=== PATIENT | male | born 2005 | race Caucasian/White ===

== ENCOUNTER 2024-07-19 05:46 | Inpatient (IN) | payer BC, SELFPAY ==
[2024-07-18 22:52] VITALS: BP 120/81
[2024-07-18 23:39] LABS: COVID-19 Antigen Negative (Negative)
--- NOTE | 2024-07-18 23:46 | ED.GENMED ---
History of Present Illness
<SAUL Saeed - Last Filed: 07/19/24 06:09>
General
Chief Complaint: Cold/Flu/URI Symptoms
Source: patient
Time Seen by Provider: 07/18/24 23:46
Nursing documentation reviewed up to this point in time: agreed with
History of Present Illness
History of Present Illness:
A pleasant 18-year-old male with no past medical history presents to the emergency room for URI symptoms x 4 days. Shortly after attending a [employer] on Tuesday patient began to develop URI symptoms including cough, subjective fever, sore
throat, fatigue, nasal congestion, right ear fullness, postnasal drip. Today he admits to leaving work early due to an increase in fatigue and sudden onset of diaphoresis. He states he immediately went home and slept for '4 to 5 hours '. This
evening he states he had a coughing attack and coughed up chunks of blood '. Patient has been rehydrating with water and Gatorade and admits to taking 1 dose of DayQuil 30 minutes prior to admission. 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
sick contact; however, admits to 1 new sexual partner on Tuesday night at the [employer]. He denies chest pain, shortness of breath, abdominal pain, headache, vision changes, nausea, vomiting, diarrhea.
He has no past medical history of reactive airway disease, asthma.
Phy Exam
<SAUL Saeed - Last Filed: 07/19/24 06:09>
General Physical Exam
General Presentation: well appearing and no apparent distress
General age: appears stated age
General Skin: warm
General Habitus: normal
General Mental: alert
General Hydration: appears well hydrated
Eye Exam
Eye Exam: conjunctiva normal
Cardiovascular Exam
Cardiovascular Exam: regular rate/rhythm, no edema, no gallop, no murmur and normal peripheral pulses
Pulmonary Exam
Pulmonary Exam: lungs clear, no respiratory distress, no rales, no crackles, no rhonchi, no wheezing and other (hemoptysis )
Gastrointestinal Exam
Gastrointestinal Exam: non tender, soft and non distended
Neurological Exam
Neurological Exam: alert and oriented x3
Musculoskeletal Exam
Musculoskeletal Exam: full ROM
Skin Exam
Skin Exam: normal color and warm/dry
Psychiatric Exam
Psychiatric Exam: normal mood/affect
Course
<Anthony Chun, [facility] - Last Filed: 07/19/24 06:09>
Orders/Labs/Results
Orders:
Orders
07/18/24 23:15
COVID-19 Antigen Urgent
Source: Nasal Swab
Influenza A+B Rapid Molecular Urgent
GABRIEL Source: Nasal Swab
Specimen Description:
Date Specimen was Collected: 07/18/24
Time Specimen was Collected: 23:08
Rapid Strep Group A Urgent
GABRIEL Source: Throat/Pharynx
Specimen Description:
Date Specimen was Collected: 07/18/24
Time Specimen was Collected: 23:08
07/19/24 00:19
CR Chest - 2 Views Urgent
Comment:
Reason For Exam: cough, hemoptysis
07/19/24 00:20
Dexamethasone Sod Phosphate [Decadron] 10 mg IV NOW STA
07/19/24 00:23
Complete Blood Count/With Diff Urgent
Monotest Urgent
07/19/24 01:21
Tranexamic Acid 500 mg INH NOW STA
07/19/24 02:40
CT Chest With Iv Contrast Urgent
Comment:
Reason For Exam: acute hemoptysis
CT Neck With Iv Contrast Urgent
Comment:
Reason For Exam: pharyngitis, acute hemoptysis
07/19/24 02:50
Comprehensive Metabolic Panel Urgent
07/19/24 04:56
0.9% Sodium Chloride 1000 ml [Nss] 1,000 ml IV 250 mls/hr
Azithromycin 500 mg/250 ml [Zithromax Infusion] 500 mg in 250 ml IV NOW
CefTRIAXone [Rocephin] 1,000 mg IV NOW STA
07/19/24 05:16
Admit/Transfer Patient As Directed
Co-Sign Provider:
Level of Care: Inpatient admission
Assign to:: Telemetry
Physician / Group: Pritesh
Diagnosis: Infectious Mononucleosis, Hemoptysis
Reason for Telemetry: Arrhythmia
Date to Stop Telemetry: 07/22/24
Time to Stop Telemetry: 11:00
Reason for Hospitalization: Infectious Mononucleosis, Hemoptysis
Expected length of stay greater than two midnights?: Yes
ELOS- Estimated Length of Stay in days: 2
I certify the patient meets the requirements for IP care: Yes
PRN Pain Medication Management As Directed
May give lesser potent ordered pain med per pt: Yes
preference::
Protocol:: Medication orders for pain may be administered in a
manner that supports deferring to patient preference
when the pt is:
- Requesting an ordered lesser potent pain medication.
Least to most potent pain medications are defined
as: acetaminophen < NSAID < tramadol < opioids
(morphine, oxycodone, hydromorphone).
- Requesting a lesser dose of the same medication IF
ORDERED.
- Requesting a less intrusive route of administration
if both routes are prescribed by the provider (PO <
IV).
07/19/24 05:17
Code Status As Directed
Resuscitation Status: Full Code
07/22/24 11:00
DC Protocol for Telemetry ONCE
Abnormal Lab Results
07/19/24
00:23
WBC 11.2 H 10^3/uL
(4.8-10.8)
RBC 4.56 L 10^6/uL
(4.70-6.10)
Abs Immat Gran (auto) 0.1 H 10^3/uL
(0-0.05)
Absolute Neuts (auto) 8.0 H 10^3/uL
(1.4-6.5)
Absolute Monos (auto) 0.8 H 10^3/uL
(0.1-0.6)
Immature Gran % 0.6 H %
(0-0.5)
Lymphocytes % 18.0 L %
(20.5-51.1)
Monoscreen Positive A
(Negative)
07/19/24 00:23
07/19/24 02:50
Vital Signs
Initial and Last Documented VS:
Initial Vital Signs
Temp Pulse Resp BP Pulse Ox
99.2 F 80 16 120/81 98
07/18/24 22:52 07/18/24 22:52 07/18/24 22:52 07/18/24 22:52 07/18/24 22:52
Last Documented Vital Signs
Temp Pulse Resp BP Pulse Ox
99.2 F 52 16 104/70 100
07/18/24 22:52 07/19/24 02:47 07/18/24 22:52 07/19/24 02:47 07/19/24 02:47
<Naomie Ta, DO - Last Filed: 07/19/24 04:59>
Orders/Labs/Results
Orders:
Orders
07/18/24 23:15
COVID-19 Antigen Urgent
Source: Nasal Swab
Influenza A+B Rapid Molecular Urgent
GABRIEL Source: Nasal Swab
Specimen Description:
Date Specimen was Collected: 07/18/24
Time Specimen was Collected: 23:08
Rapid Strep Group A Urgent
GABRIEL Source: Throat/Pharynx
Specimen Description:
Date Specimen was Collected: 07/18/24
Time Specimen was Collected: 23:08
07/19/24 00:19
CR Chest - 2 Views Urgent
Comment:
Reason For Exam: cough, hemoptysis
07/19/24 00:20
Dexamethasone Sod Phosphate [Decadron] 10 mg IV NOW STA
07/19/24 00:23
Complete Blood Count/With Diff Urgent
Monotest Urgent
07/19/24 01:21
Tranexamic Acid 500 mg INH NOW STA
07/19/24 02:40
CT Chest With Iv Contrast Urgent
Comment:
Reason For Exam: acute hemoptysis
CT Neck With Iv Contrast Urgent
Comment:
Reason For Exam: pharyngitis, acute hemoptysis
07/19/24 02:50
Comprehensive Metabolic Panel Urgent
07/19/24 04:56
0.9% Sodium Chloride 1000 ml [Nss] 1,000 ml IV 250 mls/hr
Azithromycin 500 mg/250 ml [Zithromax Infusion] 500 mg in 250 ml IV NOW
CefTRIAXone [Rocephin] 1,000 mg IV NOW STA
07/19/24 05:16
Admit/Transfer Patient As Directed
Co-Sign Provider:
Level of Care: Inpatient admission
Assign to:: Telemetry
Physician / Group: Pritesh
Diagnosis: Infectious Mononucleosis, Hemoptysis
Reason for Telemetry: Arrhythmia
Date to Stop Telemetry: 07/22/24
Time to Stop Telemetry: 11:00
Reason for Hospitalization: Infectious Mononucleosis, Hemoptysis
Expected length of stay greater than two midnights?: Yes
ELOS- Estimated Length of Stay in days: 2
I certify the patient meets the requirements for IP care: Yes
PRN Pain Medication Management As Directed
May give lesser potent ordered pain med per pt: Yes
preference::
Protocol:: Medication orders for pain may be administered in a
manner that supports deferring to patient preference
when the pt is:
- Requesting an ordered lesser potent pain medication.
Least to most potent pain medications are defined
as: acetaminophen < NSAID < tramadol < opioids
(morphine, oxycodone, hydromorphone).
- Requesting a lesser dose of the same medication IF
ORDERED.
- Requesting a less intrusive route of administration
if both routes are prescribed by the provider (PO <
IV).
07/19/24 05:17
Code Status As Directed
Resuscitation Status: Full Code
07/22/24 11:00
DC Protocol for Telemetry ONCE
Abnormal Lab Results
07/19/24
00:23
WBC 11.2 H 10^3/uL
(4.8-10.8)
RBC 4.56 L 10^6/uL
(4.70-6.10)
Abs Immat Gran (auto) 0.1 H 10^3/uL
(0-0.05)
Absolute Neuts (auto) 8.0 H 10^3/uL
(1.4-6.5)
Absolute Monos (auto) 0.8 H 10^3/uL
(0.1-0.6)
Immature Gran % 0.6 H %
(0-0.5)
Lymphocytes % 18.0 L %
(20.5-51.1)
Monoscreen Positive A
(Negative)
07/19/24 00:23
07/19/24 02:50
Vital Signs
Initial and Last Documented VS:
Initial Vital Signs
Temp Pulse Resp BP Pulse Ox
99.2 F 80 16 120/81 98
07/18/24 22:52 07/18/24 22:52 07/18/24 22:52 07/18/24 22:52 07/18/24 22:52
Last Documented Vital Signs
Temp Pulse Resp BP Pulse Ox
99.2 F 52 16 104/70 100
07/18/24 22:52 07/19/24 02:47 07/18/24 22:52 07/19/24 02:47 07/19/24 02:47
<SAUL Saeed - Last Filed: 07/19/24 06:09>
MDM/Problems Addressed
Differential Diagnosis Includes:
Viral pharyngitis, strep pharyngitis, pneumonia, mononucleosis.
MDM/Problems Addressed:
Viral pharyngitis was suspected however is unlikely due to negative COVID-19 rapid test, negative influenza A and B rapid test,. Bacterial pharyngitis is unlikely due to negative rapid strep test. Most likely etiology of symptoms is due to
mononucleosis which was confirmed with Monospot.
However.
however, on CT small hazy infiltrates in left posterior lung alvarez were visualized and possible pneumonia was suspected.
CT scan also demonstrated epiglottic edema consistent. Bacterial epiglottitis cannot be fully ruled out.
Will initiate antibiotic therapy and admit for 24-hour monitoring for resolution of hemoptysis.
<Naomie Ta DO - Last Filed: 07/19/24 04:59>
*Radiology
Radiology exam reviewed: preliminary read by ED provider (Chest x-ray is unremarkable) and radiology read reviewed
*Pulse Oximetry
Patient hypoxic: no
*Critical Care Note
Total Time (30-74mins, 75-104mins- exclusive of procedures): Not Applicable
ED Attending Note
<SAUL Saeed - Last Filed: 07/19/24 06:09>
-
Portions of this chart may have been created with voice recognition software.� Occasional wrong word or��sound alike� substitutions may have occurred due to the inherent limitations of voice recognition software.
<Naomie Ta DO - Last Filed: 07/19/24 04:59>
ED Attending Note
Patient seen and examined by attending physician: Yes
I performed the substantive portion of visit, reviewed & personally made and approve the management plan that is documented in note by myself or MADISON.: Yes
ED Attending Note:
This is a 18-year-old male with no significant past medical history who complains of 4-day history of cough, nasal congestion, significant sore throat, fatigue, myalgias, subjective fever.
Cough has been sporadic throughout the day but he denies shortness of breath, no abdominal pain. Significant sore throat but able to swallow liquids well and has been attempting to keep up with water, Gatorade etc. Tonight he began coughing and
coughed up a fair amount of dark red blood with blood clots.
He denies choking or gagging, denies vomiting. He denies chest pain. He denies dizziness nor lightheadedness.
He notes 1 previous episode of sore throat with hemoptysis that occurred several years ago, resolved without specific intervention.
No known close contacts with similar symptoms but patient did attend a democrat last week and was around multiple democrat got worse.
He vapes nicotine.
No prior history of asthma nor chronic lung disease.
He takes no medicines on a daily basis. Denies significant NSAID nor aspirin use.
He did take 2 DayQuil tonight approximately 1 hour prior to arrival.
GENERAL: 18-year-old male appears his stated age, bright and alert, pleasant, appears in no acute distress. He exhibits moderate 'hot potato' voice and mild nasal stuffiness but handling secretions well, no stridor, rare brief nonproductive cough
is noted during initial exam. Respirations are otherwise easy and nonlabored.
Initial oral temperature in triage 99.2 �F. Upon recheck 98.6 �F.
EYE: pupils equal and reactive. anicteric
NECK: Supple, nontender, no meningismus, mild shotty adenopathy bilaterally.
ENT: posterior pharynx shows moderate bilateral tonsillar injection with moderate bilateral tonsillar hypertrophy without exudate. There is no pharyngeal nor posterior pharyngeal blood. Oral mucosa is moist. TM clear b/l, nares have moderately
boggy turbinates with scant clear rhinorrhea.
CARDIAC: Regular rate and rhythm. no murmur.
LUNGS: Clear breath sounds bilaterally, no acute respiratory distress, no wheezes/rales/rhonchi
ABDOMEN: Soft, nondistended, without focal tenderness, no r/g, no cvat. normoactive BS.
NEUROLOGICAL: Alert and oriented x3, no focal neuro deficits. Gait is nagel and steady.
SKIN: Warm and dry, normal color, skin intact. No rash.
MUSCULOSKELETAL: No C/C/E. peripheral pulses are full and equal b/l. No palpable tenderness.
PSYCH: Normal and appropriate interaction.
Acute pharyngitis, URI, with acute hemoptysis. Concern for mononucleosis, acute streptococcal pharyngitis, concern for sinusitis, posterior epistaxis, thrombocytopenia.
Other consideration is lower respiratory tract infection/pneumonia, bronchial irritation as cause for hemoptysis.
He denies vomiting nor gagging thus Wendy-Nguyễn tear is unlikely.
Thus far rapid strep is negative. COVID antigen and flu testing are negative.
Will check CBC, Monospot and check chest x-ray.
Will check sputum culture if cough is productive of sputum.
Thus far no recurrent episodes of hemoptysis since arrival to the ED. He remains hemodynamically stable.
For pharyngitis will give an IV dose of Decadron.
Due to hemoptysis we will hold off on NSAIDs.
07/19/2024 01:15 am
CBC is unremarkable. Monospot is positive consistent with acute mononucleosis.
Chest x-ray is unremarkable, clear lung alvaerz.
Patient however has had recurrent episode of hemoptysis coughing up fair amount of dark red/maroon blood. There is no bright red blood. He denies vomiting nor gagging.
He continues to have no chest pain nor sense of gurgling in his chest and lungs remain clear to auscultation.
I suspect hemoptysis is posterior pharyngeal in nature. He continues to have no difficulty swallowing and is actually asking for water to drink.
Will trial nebulized TXA. If hemoptysis persist will plan for CT.
07/19/2024 0449 AM
Hemoptysis continued for a bit after TXA but has since subsided.
Patient continues to request something to eat and drink. Mildly muffled voice but no stridor and handling secretions well.
CT of the neck and chest shows acute tonsillitis without fluid collection, epiglottis is mildly thickened concerning for mild epiglottitis/supraglottitis. Airway remains patent. Maxillary sinus disease.
CT of the chest shows very subtle patchy opacities in the left lower lung concerning for pneumonia. Central airways are patent.
Due to recurrent significant hemoptysis, concern for epiglottitis as well as potential pneumonia will initiate IV antibiotics for coverage of potential bacterial pneumonia, and admit to hospitalist service for continued observation.
Will continue n.p.o. status and continue IV fluids.
Discharge Plan
Departure
Patient Disposition: Admit
Date of Disposition: 07/19/24
Time of Disposition: 04:51
Admit to: Telemetry
Admit to doctor: Pritesh
Presentation/result/management discussed w/ accepting MD/DO: Hospitalist
Covid-19: Negative COVID-19
Discharge Problem:
Acute tonsillitis due to infectious mononucleosis, Acute epiglottitis without airway obstruction, acute hemoptysis, Community acquired pneumonia
Interventions
Interventions:
*Risk Screen - Suicide Last Done: 07/18/24 22:52
*General Assessment Last Done: 07/18/24 22:52
*Neglect/Abuse Screening Last Done: 07/18/24 22:52
ED- Fall Risk Assessment Last Done: 07/18/24 22:52
*Nursing Disposition Last Done: 07/19/24 06:08
ED- Pulmonary Assessment Last Done: 07/19/24 00:30
[2024-07-19] VITALS (8 sets, daily range): BP systolic 104–126; BP diastolic 56–85; PULSE 55–104; BMI 20.7; BMI 21.2
[2024-07-19] MEDS: DECADRON 10 MG IV (00:29)
[2024-07-19 00:53] LABS: Monotest Positive (Negative)
[2024-07-19 01:01] LABS: % Basophils 0.4 % (0-2); % Eosinophils 2.3 % (0-6); % Immature Granulocytes 0.6 % (0-0.5); % Monocytes 7.4 % (1.7-9.3); % Neutrophils 71.3 % (42.2-75.2); Absolute Basophils 0.1 10^3/uL (0-0.2); Absolute Eosinophils 0.3 10^3/uL (0-0.7); Absolute Immature Granulocytes 0.1 10^3/uL (0-0.05); Absolute Monocytes 0.8 10^3/uL (0.1-0.6); Hematocrit 39.9 % (39.0-52.0); Mean Corp Hgb Conc. 35.1 g/dL (33.0-37.0); Mean Corpuscular Hgb 30.7 pg (27.0-31.0); Mean Corpuscular Volume 87.5 fL (80.0-94.0); Mean Platelet Volume 8.9 fL (7.4-10.4); Nucleated Red Blood Cells % 0 % (-); Platelet Count 205 10^3/uL (130-400); Red Blood Cell Count 4.56 10^6/uL (4.70-6.10); Red Cell Dist. Width 13.9 % (11.5-14.5); White Blood Cell Count 11.2 10^3/uL (4.8-10.8)
[2024-07-19] MEDS: TRANEXAMIC ACID 500 MG INH (01:27)
[2024-07-19 03:28] LABS: ALT (SGPT) < 10 U/L (0-50); AST (SGOT) 19 U/L (17-59); Albumin 4.2 g/dl (3.5-5.0); Alkaline Phosphatase 111 U/L (38-126); Blood Urea Nitrogen 12 mg/dl (9-20); Calcium 9.2 mg/dl (8.4-10.2); Carbon Dioxide 25 mmol/L (22-30); Chloride 101 mmol/L (98-107); Glucose 78 mg/dl (70-99); Sodium 141 mmol/L (135-145); Total Bilirubin 0.4 mg/dl (0.2-1.3); Total Protein 7.2 g/dl (6.3-8.2); eGFR > 60.00
[2024-07-19] MEDS: ROCEPHIN 1000 MG IV (05:07)
[2024-07-19] MEDS: NSS 1000 IV ×4 (05:07→23:56)
[2024-07-19] MEDS: ZITHROMAX INFUSION 250 IV (05:08)
--- NOTE | 2024-07-19 05:22 | HPS.HSE ---
Family Physician
-
Family Physician: Fernie Aranda
Chief Complaint
-
Sore Throat / Coughing up blood
History of Present Illness
Patient is a 18y M with no significant PMH who presents to ED complaining of sore throat and coughing up blood. Patient states that he developed a sore throat and cough on Tuesday. He is not aware of any specific sick contacts, but spent the
weekend at [facility] and was around a lot of people. He had dry, hacking cough, malaise and fatigue. This evening he began to cough up small amounts of blood. He presented to the ED for further evaluation.
In the ED, patient continued to cough and produce lolly blood. Approximately 4-6 ounces of blood produced here in the ED.
Patient was treated with inhaled TXA and is currently resting with no continued / persistent hemoptysis.
He denies any prior history of similar symptoms.
Medical History
Past Medical History
Past Medical History: Reports None
Past Surgical History: Reports None
Social History
Tobacco: Vaping
Alcohol: Occasional
Drug: None
Family History
Family History: Not pertinent
Allergies / Home Medications
Allergies reflects when Allergies were last updated in [employer].
Home Medications with original date entered in [employer]
Allergy/Medication List:
Allergies
Allergy/AdvReac Type Severity Reaction Status Date / Time
clindamycin Allergy Rash Verified 07/18/24 22:52
Home Medications
Accutane 07/19/24
Review of Systems
-
History Source: Patient
A 12 point ROS was completed and negative except as noted: Yes
Constitutional: Reports Fever and Fatigue; Denies Chills
EENT: Reports Sore Throat; Denies Runny Nose
Respiratory: Reports Cough and Hemoptysis; Denies Trouble Breathing
Cardiac: Denies Chest Pain or Palpitations
Abdomen/GI: Denies Abdominal Pain, Nausea, Vomiting or Diarrhea
: Denies Dysuria or Frequency
Neurological: Reports Headache; Denies Dizzy
Psych: Denies Depression or Anxiety
Physical Exam
Vital Signs
Vital Signs
Temp Pulse Resp BP Pulse Ox
99.2 F 52 16 104/70 100
07/18/24 22:52 07/19/24 02:47 07/18/24 22:52 07/19/24 02:47 07/19/24 02:47
Physical Exam
General: Other (18y M currently resting comfortably.)
HEENT: Other (Enlarged tonsils bilaterally with erythema. No exudates. No active bleeding appreciated. Posterior pharyngeal erythema and edema.)
Respiratory: Clear; No Wheezes, Rales or Rhonchi
Cardiac: S1/S2 and Regular Rhythm; No Murmur
GI: Soft, Non Tender, Non Distended and Normal Bowel Sounds
Musculoskeletal: No Clubbing, No Cyanosis and No Edema
Neuro: AO x 3
Laboratory Results
-
07/19/24 00:23
07/19/24 02:50
Laboratory Results
Total Bilirubin 0.4 mg/dl (0.2-1.3) 07/19/24 02:50
AST 19 U/L (17-59) 07/19/24 02:50
ALT < 10 U/L (0-50) 07/19/24 02:50
Alkaline Phosphatase 111 U/L (38-126) 07/19/24 02:50
Impression/Plan
-
A/P: Patient is a 18y M with no significant PMH who presents to ED complaining of sore throat x 3-4 days and hemoptysis starting this evening.
Infectious Mononucleosis
Tonsillitis
Hemoptysis
- Admit for further evaluation and treatment.
- Bleeding controlled after inhaled TXA in the ED.
- NPO for now. Quantify hemoptysis.
- ENT evaluation for further recommendations.
- CT done in the ED shows tonsillitis / epiglottitis but no evidence of active bleeding or peritonsillar abscess.
- Continue IV steroids for edema - discontinue after several doses and clinical improvement.
- Follow for any new / worsening symptoms or recurrent hemoptysis.
Possible LLL Pneumonia
- CT done in the ED shows very faint, patchy opacities at the L base. Vision report suggests pneumonia.
- Will continue with abx for now - but suspect symptoms are secondary to mono / tonsillitis.
- Lungs clear on exam, no hypoxemia.
- Follow for any clinical changes.
Acne
- Hold Accutane for now.
DVT Prophylaxis: SCDs
Code Status: Full
--- NOTE | 2024-07-19 06:35 | PTCARENOTE ---
Pt received from ED at 0625. Pt pleasant, able to ambulate into room, VSS, no issues with breathing, states he feels like he need to burp but can't. Pt bed in lowest position, call reveles within reach. Pt educated on importance of call reveles usage, pt
relays understanding and cooperation. Will continue with current plan of care.
[2024-07-19] MEDS: DECADRON 6 MG IV ×4 (08:27→23:59)
--- NOTE | 2024-07-19 10:22 | CM ---
publications manager reviewed patient's chart and met with patient and patient resides with his father, in a 2 story home, patient is independent with adl's and ambulation, no dme, patient is employed. Home when stable no needs.
PCP: Fernie Aranda
Pharmacy: [facility] in [place]
Plan; Home when stable.
--- NOTE | 2024-07-19 11:07 | CON.ID ---
Consultation
-
Date/Time Consultation Requested: July 19, 2024 1006
Date/Time Consultation Performed: July 19, 2024 1110
Requesting Provider: Dr. Tiffany Mcfarland
Performing Provider: Dr. Brooke Ludwig
Reason for Consultation: mono+, hemoptysis
Chief Complaint / Past History
Chief Complaint
Sore throat, coughing up blood
History of Present Illness
18 year old female with no PMH who started feeling unwell on Tuesday07/15/24 with sore throat, cough, runny nose. Sore throat became severe. His throat was red. + subjective fever and sweats. He then coughed up lolly blood at home. He presented to
ED and coughed up more blood twice. He showed me photos of sputum container about 1/3 full. Monoscreen +. SARS neg. No abd pain. No diarrhea. He was at [facility] From [facility] to Sat with crowd of people 30+. He did not share fomites with
anyone. He did kiss someone. No travel. No further hemoptysis.
Past History
Additional Past Medical History:
Acne
Past Surgical History: None
Allergy History:
clindamycin Allergy (Verified 07/18/24 22:52)
Rash
Medications Reviewed: Yes
Current Antibiotics:
ceftriaxone
Azithromycin
Social History
Tobacco: Vaping
Alcohol: Occasional
Drug: None
Personal: Single
Employment: Employed ([employer])
Family History
Family History: Not Pertinent
Review of Systems
Review of Systems
General: Fever, Chills and Change in Appetite
HEENT: Pharyngitis; Negative Stiff Neck or Headache
Cardiovascular: Negative Chest Pain or Dyspnea
Respiratory: Cough and Hemoptysis
Gasteroenterology: Negative Nausea, Vomiting or Diarrhea
Genital / Urological: Negative Dysuria or Flank Pain
Endocrine: Fatigue
Skin / Hair / Nails: Negative Rash
Neurological: Negative Dizziness
All systems: All other systems were reviewed and were negative
Vital Signs
Temp Pulse Resp BP Pulse Ox
98.2 F 80 16 126/85 99
07/19/24 07:55 07/19/24 07:55 07/19/24 07:55 07/19/24 07:55 07/19/24 07:55
Physical Exam
Physical Exam
Constitutional: No Acute Distress and Comfortable
Head: Other (No frontal or maxillary sinus tenderness)
Eyes: No Conjunctival Hemorrhage and Sclera Anicteric
Pharynx: Other (Very enlarged tonsils, + erythema anterior and posterior pharynx, no exudate)
Oral: No Thrush
Lymph Nodes: Lymphadenopathy (Submandibular bilateral)
Cardiovascular: Regular Rate and S1/S2
Pulmonary: Clear
Gastrointestinal: Soft, Non Tender, Non Distended and Normal Bowel Sounds
Genito-Urinary: Negative CVA Tenderness
Extremities: Negative Edema
Musculoskeletal: Negative Joint Swelling, Joint Effusion or Spinal Tenderness
Skin: Negative Rash
Neurological: AO x 3
Lab / Diagnostic Study Results
07/19/24 00:23
07/19/24 02:50
Abs Immat Gran (auto) 0.1 10^3/uL (0-0.05) H 07/19/24 00:23
Absolute Neuts (auto) 8.0 10^3/uL (1.4-6.5) H 07/19/24 00:23
Absolute Lymphs (auto) 2.0 10^3/uL (1.2-3.4) 07/19/24 00:23
Absolute Monos (auto) 0.8 10^3/uL (0.1-0.6) H 07/19/24 00:23
Absolute Basos (auto) 0.1 10^3/uL (0-0.2) 07/19/24 00:23
Immature Gran % 0.6 % (0-0.5) H 07/19/24 00:23
Neutrophils % 71.3 % (42.2-75.2) 07/19/24 00:23
Lymphocytes % 18.0 % (20.5-51.1) L 07/19/24 00:23
Monocytes % 7.4 % (1.7-9.3) 07/19/24 00:23
Eosinophils % 2.3 % (0-6) 07/19/24 00:23
Basophils % 0.4 % (0-2) 07/19/24 00:23
Microbiology Results
Micro:
07/18/24 23:15 Streptococcus Screen (GABRIEL) - Pending
Throat/Pharynx Streptococcus Rapid Screen - Final
Rapid Strep Screen (Group A) Negative
07/18/24 23:15 Influenza Types A & B (RACHAEL) - Final
Nasal Swab Negative for Influenza A & B, NAAT
Negative results must be combined with clinical observations
and patient history.
Nucleic Acid Amplification test (NAAT)performed on the
INTTRA platform.
07/19/24 CXR: No evidence of active cardiopulmonary disease.
07/19/24 CT chest: Mild groundglass opacity within the left lower lobe, is likely groundglass pneumonitis. The rest of the lungs appear clear.
07/19/[address]: Moderate to severe enlargement of the tonsils, compatible with tonsillitis. No evidence of collection to suggest abscess or phlegmon. There is also enlargement of the lingual tonsils. Epiglottis appears slightly thickened,
suggesting epiglottitis. There is also slight thickening of the soft tissues of the hypopharynx and larynx, suggesting laryngitis.There are slightly prominent cervical lymph nodes, likely reactive inflammatory lymph nodes.
Assessment / Plan
# Mononucleosis with tonsillar pharyngitis/epiglotittis, cervical LAD
# Hemoptysis - per ENT as a result of rapid tonsil hypertrophy.
- CXR neg
-Chest CT mild groundglass LLL opacity - nonspecific pneumonitis
- LFT's normal. No splenomegaly on chest CT
- DC ceftriaxone and azithromycin
- Supportive care
--- NOTE | 2024-07-19 11:40 | W.PN.HOSP.TC ---
Today's Communication/Plan
-
Continue gentle fluids, steroids and antibiotics for now
Discontinue at ENT and infectious disease discretion
Advance diet as tolerated
Assessment / Plan
Assessment / Plan
Infectious mononucleosis
Tonsillitis
Hemoptysis
� Bleeding controlled after inhaled TXA in ED -> no further bleeding
- Neck CT revealed tonsillitis, epiglottitis, laryngitis
- ENT and ID appreciated
- DC steroids for edema at discretion of ENT
Possible left lower lung pneumonia
- Chest CT revealed mild groundglass opacity of left lower lobe, likely groundglass pneumonitis
- Continue ceftriaxone and azithromycin, but symptoms secondary to mono more likely
- No hypoxemia
- ID appreciated
Acne
� Space hold Accutane for now
Advance diet to clear liquids
DVT SCD
Full code
Anticipated Discharge: Within 24 hours
Subjective/Interval History
-
Date of Service: July 19, 2024
Objective Data
-
Labs:
Laboratory Results
07/19/24 07/19/24
00:23 02:50
WBC 11.2 H
Hgb 14.0
Hct 39.9
Plt Count 205
Sodium 141
Potassium 4.0
Chloride 101
Carbon Dioxide 25
BUN 12
Creatinine 0.8
Glucose 78
Calcium 9.2
Total Bilirubin 0.4
AST 19
ALT < 10
Alkaline Phosphatase 111
Vital Signs:
Vital Signs
Temp Pulse Resp BP Pulse Ox
98.2 F 80 16 126/85 99
07/19/24 07:55 07/19/24 07:55 07/19/24 07:55 07/19/24 07:55 07/19/24 07:55
Review of Systems
-
History Source: Patient
Constitutional: Reports Fatigue
EENT: Reports Sore Throat
Respiratory: Reports No Symptoms
Cardiac: Reports No Symptoms
Abdomen/GI: Reports No Symptoms
Neuro: Reports No Symptoms
Physical Exam
-
General: No Apparent Distress
HEENT: Other (Enlarged tonsils, diffuse pharyngeal erythema)
Respiratory: Clear to Auscultation
Cardiac: Regular Rhythm and S1/S2
Skin: Warm
Neuro: AO x 3
Psych: Calm
--- NOTE | 2024-07-19 11:46 | CON.MD ---
Consultation - Medical
-
Pt seen and consult dictated.
He has a viral URI likely due to Otero.
hemoptysis was a result of rapid tonsil hypertrophy which does happen with some frequency.
Airway is widely patent.
Agree with antibiotics (to cover bacterial superinfection) as well as steroids.
He is ready for discharge when taking PO's well and pain is well controlled; hopefully tomorrow or as early as tonight.
May advance diet to softs.
[2024-07-20] MEDS: NSS 1000 IV (06:21)
[2024-07-20] MEDS: DECADRON 6 MG IV (06:21)
[2024-07-20 07:00] VITALS: BP 106/61; BP 114/62; BP 95/49; PULSE 55; PULSE 72; PULSE 94
[2024-07-20 08:14] LABS: Hematocrit 39.2 % (39.0-52.0); Hemoglobin 13.3 g/dL (13.0-18.0); Mean Corp Hgb Conc. 33.9 g/dL (33.0-37.0); Mean Corpuscular Hgb 31.6 pg (27.0-31.0); Mean Corpuscular Volume 93.1 fL (80.0-94.0); Mean Platelet Volume 9.4 fL (7.4-10.4); Platelet Count 215 10^3/uL (130-400); Red Blood Cell Count 4.21 10^6/uL (4.70-6.10); White Blood Cell Count 19.6 10^3/uL (4.8-10.8)
[2024-07-20 09:29] LABS: ALT (SGPT) 10 U/L (0-50); AST (SGOT) 18 U/L (17-59); Albumin 3.7 g/dl (3.5-5.0); Alkaline Phosphatase 110 U/L (38-126); Blood Urea Nitrogen 15 mg/dl (9-20); Calcium 8.9 mg/dl (8.4-10.2); Carbon Dioxide 21 mmol/L (22-30); Chloride 106 mmol/L (98-107); Estimated Creatinine Clearance > 125 ml/min; Glucose 110 mg/dl (70-99); Potassium 4.3 mmol/L (3.5-5.1); Sodium 140 mmol/L (135-145); Total Bilirubin 0.4 mg/dl (0.2-1.3); Total Protein 6.5 g/dl (6.3-8.2); eGFR > 60.00
--- NOTE | 2024-07-20 10:34 | CM ---
Chart reviewed, patient is for discharge to home today.
Plan; Home today no needs.
--- NOTE | 2024-07-20 10:37 | W.PN.HOSP.TC ---
Addendum entered and electronically signed by Wander Silva MD 07/20/24 13:15:
medrol taper
outpt ent follow up
id rec to dc atb
no evidence lll pneumonia
dc home
supportive care
Original Note:
Today's Communication/Plan
-
Discharged with Medrol taper
Assessment / Plan
Assessment / Plan
Infectious mononucleosis
Tonsillitis
Hemoptysis
� Bleeding controlled after inhaled TXA in ED -> no further bleeding
- Neck CT revealed tonsillitis, epiglottitis, laryngitis
- ENT and ID appreciated
- Continue medrol taper after discharge per ENT
Possible left lower lung pneumonia
- Chest CT revealed mild groundglass opacity of left lower lobe, likely groundglass pneumonitis
- like secondary to mono discontinue antibiotics per ID
- No hypoxemia
- Stable to discharge with supportive measures and steroid taper
Acne
� Space hold Accutane for now
- Restart at discharge
Advance diet to soft and bite size
DVT SCD
Full code
Anticipated Discharge: Today
Subjective/Interval History
-
Date of Service: July 20, 2024
Objective Data
-
Labs:
Laboratory Results
07/20/24
07:32
WBC 19.6 H
Hgb 13.3
Hct 39.2
Plt Count 215
Sodium 140
Potassium 4.3
Chloride 106
Carbon Dioxide 21 L
BUN 15
Creatinine 0.7
Glucose 110 H
Calcium 8.9
Total Bilirubin 0.4
AST 18
ALT 10
Alkaline Phosphatase 110
Vital Signs:
Vital Signs
Temp Pulse Resp BP Pulse Ox
98.3 F 85 18 104/63 99
07/19/24 23:28 07/19/24 23:28 07/19/24 23:28 07/19/24 23:28 07/20/24 08:29
I&O
07/19/24 07/20/24 07/21/24
06:59 06:59 06:59
Intake Total 2280 / 2280
Balance 0 / 2280
Review of Systems
-
Unable to obtain full review of systems at this time due to: Dementia
Constitutional: Reports Fatigue
EENT: Reports Sore Throat
Respiratory: Reports No Symptoms
Cardiac: Reports No Symptoms
Abdomen/GI: Reports No Symptoms
Neuro: Reports No Symptoms
Physical Exam
-
General: No Apparent Distress and Comfortable
HEENT: Other (Pharyngeal erythema, exudate, enlarged tonsils)
Respiratory: Clear to Auscultation
Cardiac: Regular Rhythm and S1/S2
GI: Soft, Nontender, Nondistended and Normal Bowel Sounds
Genito-urinary: No Costovertebral Tender
Musculoskeletal: No Edema
Skin: Warm
Neuro: AO x 3
Psych: Calm
--- NOTE | 2024-07-20 11:20 | PN.CDI ---
CDI
- -
CDI:
Physician Documentation Request
Admit Date: 07/19/24 05:46
Dear Doctor Bartolo,
Clinical Indicators:
Patient admitted with infectious mononucleosis.
07/20 PN, 'Possible left lower lung pneumonia- Chest CT revealed mild groundglass opacity of left lower lobe, likely groundglass pneumonitis- like secondary to mono discontinue antibiotics per ID'
Please clarify the following:
LLL Pneumonia was ruled out; pneumonitis only
LLL Pneumonia is still a likely, suspected, probable diagnosis
Other, please specify
Use of terms such as suspected, likely, concern for, or probable (associated with a specific diagnosis that is being evaluated, monitored, or treated as if it exists) are acceptable and can be coded in the inpatient setting, when documented at the
time of discharge.
Thank you,
Susie Helms RN BSN
CDI Specialist
available via tiger text
Please use your independent medical judgment in providing your response.
--- NOTE | 2024-07-20 14:14 | W.DCSUMMARY ---
Discharge Summary
Discharge Data
Date of Admission: 07/19/24
Date of Discharge: 07/20/24
-
Pending Results: No
Hospital Course
Primary diagnosis:
Infectious mononucleosis
Tonsillitis
Epiglottitis
Hemoptysis
Secondary diagnoses:
Acne
Hospital course:
18-year-old male presented to the ED on 07/18/[address] revealed tonsillitis, epiglottitis. Possible left lower lobe pneumonia also noted on chest CT. Chest x-ray unremarkable. Patient given TXA inhaler in ED. Hemoptysis
stopped. Started on fluids, steroids, azithromycin and ceftriaxone to cover possible pneumonia. Infectious disease and ENT consulted. Mononucleosis tested positive. The next morning, infectious disease recommended discontinuation of antibiotics
as symptoms most likely due to mono. He continued on steroids and fluids. On 07/20/2024, patient stable for discharge on Medrol taper and close follow-up with with PCP. Patient advised to avoid contact sports for up to 1 months after symptoms to
resolve and supportive care.
Discharge Plan
-
Patient Disposition: Home (Routine Discharge)
Discharge Diagnosis/Procedures: Infectious mononucleosis, Tonsillitis, Hemoptysis
Condition: Good
Diet: No restrictions and As tolerated
Activity: Other activity
Additional Activity: Avoid contact sports for up to one month after symptoms resolve
Driving Restrictions: As prior to admission
Bathing Restrictions: None
Instructions: Mononucleosis
Stand Alone Forms: Return to Work
Referrals:
Fernie Aranda MD [Family Provider] - in less than 1 week
Additional Discharge Medication Instructions: No contact sports for one month after symptoms resolve. May feel fatigued for next 6 to 8 weeks. Lots of fluids and rest.
Prescriptions:
New
methylprednisolone [Methylpred DP] 4 mg tablets,dose pack
4 mg PO PER PKG DIR Qty: 21 0RF
Continued
Accutane
Discharge Orders:
Discharge Patient (As Directed); Ordered 07/20/24
Ordered By: Tiffany Mcfarland
Discharge Date and Time
Discharge Date/Time: 07/20/24 12:41
Print Language: KYRGYZ
== END 2024-07-20 12:41 | disposition home or self-care (01) | DRG 866 ==
LOC: 4 WEST ACU 05:46
PROVIDERS: Student in an Organized Health Care Education/Training Program; ADMITTING PHYSICIAN Hospitalist; ATTENDING PHYSICIAN Hospitalist; EMERGENCY PHYSICIAN Emergency Medicine; FAMILY PHYSICIAN Pediatrics; OTHER PHYSICIAN Internal Medicine Infectious Disease; OTHER PHYSICIAN Otolaryngology
DX: B27.90 Infectious mononucleosis, unspecified without complication (principal); J05.10 Acute epiglottitis without obstruction; R04.2 Hemoptysis; J03.80 Acute tonsillitis due to other specified organisms; F17.290 Nicotine dependence, other tobacco product, uncomplicated; L70.9 Acne, unspecified; Z88.1 Allergy status to other antibiotic agents; Z20.822 Contact with and (suspected) exposure to COVID-19
CPT/HCPCS: 70491; 71046; 71260; 80053; 85025; 85027; 86308; 87070; 87502; 87811; 87880; 94640; 96365; 96375; 99285; Q9967

== ENCOUNTER 2024-10-23 04:41 | Emergency (ER) | payer BC, SELFPAY ==
[2024-10-23 04:43] VITALS: BP 144/80
[2024-10-23 05:04] VITALS: BMI 21.8
[2024-10-23 05:08] VITALS: BP 126/72
--- NOTE | 2024-10-23 05:14 | ED.MUSCINJ ---
Addendum entered and electronically signed by Ishaan Daugherty DO 10/25/24 09:25:
xray report noted
pt treated with splint/crutches and advised to see ortho
Original Note:
HPI-Injury
General
Chief Complaint: Musculo-Skeletal Complaint
Source: patient
Exam Limitations: none
Time Seen by Provider: 10/23/24 04:52
Nursing documentation reviewed up to this point in time: agreed with
History of Present Illness-Injury
Is this injury a work related problem?: No
Is pt an associate of [facility]?: No
Initial Injury comments:
18-year-old male inversion injury to his left foot yesterday celebrated [email or web address], has pain and bruising in his ankle and foot difficulty ambulating,
Past History
Past History
ED Past Medical History: None
ED Past Surgical History: None
Social History
Tobacco: Non-smoker
Alcohol: None
Drug: None
Personal: Single
Living: with family
Employment: Student
Review of Systems
Review of Systems
All Other Systems: Not applicable
Musculoskeletal: Reports joint pain
Phy Exam
Physical Exam
Physical Exam:
Physical Exam
General: no apparent distress, not acutely ill
Neck: No tongue bite
Heart: s1/s2 regular rate and rhythm, no murmur. equal radial pulses.
Lungs: no acute respiratory distress.
Neuro: alert and oriented. no focal neurological deficits
Skin: no rash
Psychiatric: well kept. interactive and cooperative
Extremities: Mild tenderness in the left lateral malleolus and mild tenderness to the left medial malleolus mild tenderness and bruising over the left midfoot base of the fifth metatarsal nontender fibular head nontender
Injury Course
Orders/Labs/Results
Orders:
Orders
10/23/24 04:41
Ankle, left 3 view CR [CR Ankle - Left Min 3 Views ] Urgent
Comment:
Reason For Exam: pain
10/23/24 04:44
Foot, Left 3 View [CR Foot - Left Min 3 Views] Urgent
Comment:
Reason For Exam: pain, swelling
10/23/24 05:11
Air Splint Left-Treatment ONCE
Crutches-Treatment ONCE
Ibuprofen [Motrin] 600 mg PO NOW STA
Procedures
Splint Check
Splint checked by provider?: No
Splinting/Sling Placement
Left Ankle:
Procedure completed by: rn
Pre-splint extermity exam: neurovascular intact
Type of splint: aircast
Splint checked by provider?: No
Normal distal neurovascular exam?: Yes
MDM/Problems Addressed
Differential Diagnosis Includes:
Strain contusion fracture ligamentous injury
*Critical Care Note
Total Time (30-74mins, 75-104mins- exclusive of procedures): Not Applicable
Update Note
Update Note:
X-ray noted formal report pending will mobilize for comfort follow-up with orthopedic podiatry
ED Attending Note
-
Portions of this chart may have been created with voice recognition software.� Occasional wrong word or��sound alike� substitutions may have occurred due to the inherent limitations of voice recognition software.
Discharge Plan
Departure
Patient Disposition: Home (Routine Discharge)
Date of Disposition: 10/23/24
Time of Disposition: 05:12
Patient with high blood pressure during this ER visit?: No
Condition: Good
Discharge Problem:
Ankle injury
Instructions: How to Use Crutches, Sprain (DC), Ibuprofen
Prescriptions:
New
ibuprofen 600 mg tablet
600 mg PO Q8H PRN (Reason: Pain) Qty: 20 0RF
No Action
Accutane
methylprednisolone [Methylpred DP] 4 mg tablets,dose pack
4 mg PO PER PKG DIR Qty: 21 0RF
Referrals:
Alvaro Rosas DPM [Active] - Next open appointment
Interventions
Interventions:
*Risk Screen - Suicide Last Done: 10/23/24 04:43
*General Assessment Last Done: 10/23/24 05:04
*Neglect/Abuse Screening Last Done: 10/23/24 04:43
ED- Fall Risk Assessment Last Done: 10/23/24 05:04
*ED COVID-19 Vaccine History Last Done: 10/23/24 05:04
ED-Musculoskeletal Assessment Last Done: 10/23/24 05:04
Discharge Date and Time
Print Language: DIVEHI
[2024-10-23] MEDS: MOTRIN 600 MG PO (05:30)
== END 2024-10-23 05:33 | disposition home or self-care (01) ==
LOC: EMR 04:41
PROVIDERS: EMERGENCY PHYSICIAN Emergency Medicine; FAMILY PHYSICIAN Student in an Organized Health Care Education/Training Program
DX: S99.912A Unspecified injury of left ankle, initial encounter (principal); X50.1XXA Overexertion from prolonged static or awkward postures, initial encounter
CPT/HCPCS: 99283; 73610; 73630